=== PATIENT | male | born 1955 | race African-American/Black ===

== ENCOUNTER 2018-11-09 14:44 | Emergency (ER) | payer OTHER ==
[~2018-11-09] VITALS: Ht 175.3 cm; Wt 100.0 kg
[2018-11-09 14:45] VITALS: Ht 175.3 cm; Wt 100.0 kg
[2018-11-09] MEDS ORDERED: SOD CHLORIDE 0.9% 1,000 ML IV STA (14:47)
[2018-11-09] MEDS ORDERED: ONDANSETRON 4 MG INJ IV STA (14:47)
[2018-11-09] MEDS ORDERED: MECLIZINE 12.5 MG TAB PO ONE (15:00)
[2018-11-09] MEDS ORDERED: RANI150T35 PO (15:19)
[2018-11-09] MEDS ORDERED: GABA100C14 PO (15:19)
[2018-11-09] MEDS ORDERED: ONDA4TAB14 PO (15:57)
[2018-11-09] MEDS ORDERED: LOPE2CAP PO (15:57)
--- NOTE | 2018-11-09 15:58 | ERD ---
ER Documentation Chief Complaint Chief Complaint NAUSEA/VOMITING/DIARRHEA AND DIZZINESS X 20 MINUTES HPI Patient is a 63-year-old male with coronary disease, diabetes, and high cholesterol who presents with multiple complaints. He was brought in by ambulance. He has nausea and vomiting and reports "vertigo". He says that he passed out in the bushes. He has headache and diarrhea. His symptoms started 20 minutes prior to arrival. He did get his flu shot this year. He had subjective fever. Upon review of old medical records this is the patient's first visit to the emergency department. ROS All systems reviewed and are negative except as per history of present illness. Medications Home Meds Active Scripts Loperamide Hcl* (Imodium*) 2 Mg Capsule, 2 MG PO .AFTER EA LOOSE BM PRN for DIARRHEA, #10 TAB Prov:NAOMY HUNTER MD 11/09/18 Ondansetron (Ondansetron Odt) 4 Mg Tab.rapdis, 4 MG PO Q6H PRN for NAUSEA AND/OR VOMITING, #10 TAB Prov:NAOMY HUNTER MD 11/09/18 Reported Medications Gabapentin* (Gabapentin*) 100 Mg Capsule, 100 MG PO QHS, #90 CAP 11/09/18 Ranitidine Hcl* (Zantac*) 150 Mg Tablet, 150 MG PO HS, #30 TAB 11/09/18 Allergies Allergies: Coded Allergies: Penicillins (Verified Allergy, Intermediate, HIVES, 11/09/18) PMhx/Soc History of Surgery: Yes (LEFT ARM FRACTURE REPAIR) Anesthesia Reaction: No Hx Neurological Disorder: No Hx Respiratory Disorders: Yes (ASTHMA) Hx Cardiac Disorders: Yes (HTN, HYPERLIPIDEMIA) Hx Psychiatric Problems: Yes Hx Miscellaneous Medical Probl: Yes (DM TYPE II) Hx Alcohol Use: No Hx Substance Use: No Hx Tobacco Use: No Smoking Status: Unknown if ever smoked FmHx Family History: diabetes Physical Exam Vitals Vital Signs Date Temp Pulse Resp B/P (MAP) Pulse Ox O2 O2 Flow FiO2 Time Delivery Rate 11/09/18 87 24 135/77 99 Room Air 16:05 (96) 11/09/18 98.7 93 16 113/64 100 14:45 (80) Physical Exam Const: No acute distress Head: Atraumatic Eyes: Normal Conjunctiva ENT: Normal External Ears, Nose and Mouth. Neck: Full range of motion. No meningismus. Resp: Clear to auscultation bilaterally Cardio: Regular rate and rhythm, no murmurs Abd: Soft, non tender, non distended. Normal bowel sounds Skin: No petechiae or rashes Back: No midline or flank tenderness Ext: No cyanosis, or edema Neur: Awake and alert Psych: Normal Mood and Affect Result Diagram: 11/09/18 1502 11/09/18 1502 Results 24 hrs Laboratory Tests Test 11/09/18 15:02 11/09/18 15:11 White Blood Count 9.4 10^3/ul Red Blood Count 5.72 10^6/ul Hemoglobin 15.5 g/dl Hematocrit 47.0 % Mean Corpuscular Volume 82.2 fl Mean Corpuscular Hemoglobin 27.1 pg Mean Corpuscular Hemoglobin Concent 33.0 g/dl Red Cell Distribution Width 14.9 % Platelet Count 294 10^3/UL Mean Platelet Volume 9.7 fl Immature Granulocytes % 0.200 % Neutrophils % 90.4 % Lymphocytes % 4.8 % Monocytes % 3.4 % Eosinophils % 1.0 % Basophils % 0.2 % Nucleated Red Blood Cells % 0.0 /100WBC Immature Granulocytes # 0.020 10^3/ul Neutrophils # 8.5 10^3/ul Lymphocytes # 0.5 10^3/ul Monocytes # 0.3 10^3/ul Eosinophils # 0.1 10^3/ul Basophils # 0.0 10^3/ul Nucleated Red Blood Cells # 0.0 10^3/ul Sodium Level 140 mmol/L Potassium Level 4.3 mmol/L Chloride Level 102 mmol/L Carbon Dioxide Level 29 mmol/L Anion Gap 9 Blood Urea Nitrogen 17 mg/dl Creatinine 1.17 mg/dl Est Glomerular Filtrat Rate mL/min 57 mL/min Glucose Level 105 mg/dl Calcium Level 9.7 mg/dl Troponin I < 0.012 ng/ml Bedside Glucose 86 mg/dL Current Medications Medications Dose Sig/Josefina Start Time Status Last (Trade) Ordered Route PRN Stop Time Admin Dose Reason Admin Sodium 1,000 ml @ Q1H STAT 11/09/18 DC 11/09/18 Chloride 1,000 mls/hr IV 14:47 15:05 11/09/18 15:46 Ondansetron 4 mg ONCE STAT 11/09/18 DC 11/09/18 HCl (Zofran IV 14:47 15:05 Inj) 11/09/18 14:48 Meclizine 25 mg ONCE ONCE 11/09/18 DC 11/09/18 HCl PO 15:00 15:05 (Antivert) 11/09/18 15:01 Procedures/MDM EKG read by me: Rate/Rhythm: Regular rate and rhythm at a rate of 86 Intervals: Normal Impression: No evidence of ischemia or arrhythmia Smoking Cessation Therapy: Pt. was lectured for greater than 3 minutes on the health risks of continued smoking and the benefits of cessation. Patient is a 63-year-old male who presents with multiple complaints. He had vomiting and diarrhea and says that he passed out. Vital signs are basically normal and his laboratory studies are normal. He was given fluids and Zofran. I would treat with Zofran and Imodium. I doubt serious bacterial infection. I doubt ventricular arrhythmia. I believe outpatient management is appropriate but the patient will need close follow-up with his primary doctor within 24-48 hours. He can return for any worsening symptoms. Departure Diagnosis: Primary Impression: Viral illness Additional Impressions: Syncope Syncope type: unspecified Qualified Codes: R55 - Syncope and collapse Nausea and vomiting Vomiting type: unspecified Vomiting Intractability: non-intractable Qualified Codes: R11.2 - Nausea with vomiting, unspecified Condition: Fair Patient Instructions: Nausea and Vomiting-Adult, Syncope, Unk Cause Referrals: Your doctor Additional Instructions: Call your primary care doctor TOMORROW for an appointment during the next 1-2 days.See the doctor sooner or return here if your condition worsens before your appointment time. NAOMY HUNTER MD Nov 09, 2018 15:58
[2018-11-09 16:05] VITALS: BP 135/77; PULSE 87; RESP 24
== END 2018-11-09 16:15 | disposition home or self-care (01) ==
LOC: E/R 14:44 → EDSEX 14:44 → E/R 16:15
DX: B34.9 Viral infection, unspecified (principal); R55 Syncope and collapse; E11.9 Type 2 diabetes mellitus without complications; J45.909 Unspecified asthma, uncomplicated; I10 Essential (primary) hypertension
CPT/HCPCS: 36415; 80048; 82962; 84484; 85025; 87400; 93005; 96374; J2405; J7030; Z7502; Z7610